=== PATIENT | male | born 1990 | race Caucasian/White ===

== ENCOUNTER 2016-12-15 02:45 | Emergency (ER) | payer OTHER ==
[2016-12-15] MEDS ORDERED: IOPAMIDOL 300 (61%) 100 ML VIAL IV ONE (02:46)
[2016-12-15] MEDS ORDERED: ONDANSETRON 4 MG/2ML 2 ML VIAL ONE (03:09)
[2016-12-15 03:19] LABS: ABSOLUTE NEUTROPHIL COUNT 9.7 K/mm3 (1.8-7.7); BASO % 0.3 % (0.2-1.0); EOS # 0.2 (0.0-0.5); EOS % 1.4 % (0.9-2.9); HEMATOCRIT 45.5 % (32.0-52.0); HEMOGLOBIN 14.4 gm/l (14.0-18.0); IMM NEUT% 0.2 % (0-1); LYMPH # 0.7 (1.0-4.8); LYMPH % 5.8 % (15-45); MEAN CELL VOLUME 85.8 fl (80.0-94.0); MEAN CORPUSCULAR HEMOGLOBIN 27.2 pg (27.0-31.0); MEAN CORPUSCULAR HGB CONC 31.6 g/dl (33.0-37.0); MEAN PLATELET VOLUME 10.6 fl (7.4-10.4); MONO % 8.7 % (4-12); NEUT % 83.6 % (43-75); PLATELET COUNT 202 K/mm3 (130-400); RED CELL DISTRIBUTION WIDTH 12.3 % (11.5-14.5)
[2016-12-15] MEDS ORDERED: ACETAMINOPHEN 500 MG TABLET ONE (03:23)
[2016-12-15 03:35] LABS: SPECIFIC GRAVITY 1.015 (1.001-1.030); URINE BILIRUBIN NEGATIVE (NEGATIVE); URINE BLOOD NEGATIVE (NEGATIVE); URINE GLUCOSE (UA) NEGATIVE (NEGATIVE); URINE LEUKOCYTE ESTERASE NEGATIVE (NEGATIVE); URINE NITRITE NEGATIVE (NEGATIVE); URINE PROTEIN NEGATIVE (NEGATIVE); URINE UROBILINOGEN 1 mg/dL (0-1 mg/dl)
[2016-12-15 03:39] LABS: URINE APPEARANCE CLEAR; URINE COLOR YELLOW
[2016-12-15 03:40] LABS: ALB/GLOB RATIO 1.7 (>1.0); ALBUMIN 4.3 gm/dL (3.5-5.7); CALCIUM 9.4 mg/dL (8.6-10.3)
[2016-12-15] MEDS ORDERED: SODIUM CHLORIDE 0.9% 1,000 ML ONE (04:38)
--- NOTE | 2016-12-15 07:52 | CT ---
NECK SOFT TISSUE W/ CON: 12/15/2016 3:14 AM CLINICAL INDICATION: Cold symptoms without improvement. COMPARISON: None. (MR) Sequences Performed: None (CT) Scan Technique: Contiguous axial 3 mm images from the AP window through the orbital meatal line are obtained after the uneventful IV administration of contrast. Sagittal and coronal reformations were also obtained this time. Contrast: 80 ml of Isovue-300 contrast administered. FINDINGS: Orbits/Paranasal Sinuses/Skull Base: Scattered fluid and mucosal thickening is noted within the ethmoid air cells. Orbits and regional brain are otherwise unremarkable. Nasopharynx: Normal Suprahyoid Neck: Dental amalgam causes streak artifact limiting assessment at the level of the oropharynx. Otherwise normal. Infrahyoid Neck: There is apposition of the vocal cords which may relate to formation or breath-hold during image acquisition. Otherwise normal. Thyroid: Normal Thoracic Inlet: Normal Lymph Nodes: Multiple small nodes are present bilaterally, though none are enlarged by size criteria. Vascular Structures: Normal Other Findings: Osseous structures are otherwise intact. IMPRESSION: Sinus disease without other acute inflammatory process. Close clinical and radiographic follow-up are recommended. Preliminary report was provided by [employer] at approximately 0425 hours on 12/15/2016.
--- NOTE | 2016-12-15 07:52 | RAD ---
12/15/2016 7:48 AM CHEST - 2 VIEWS History: Cough and cold symptoms. Comparison: 11/05/2015 Findings: Two views of the chest are obtained. The lungs are clear with out effusion or pneumothorax. The cardiomediastinal silhouette is unremarkable.. The osseous structures are intact.. IMPRESSION: No acute intrathoracic process.
== END 2016-12-15 06:51 | disposition home or self-care (01) ==
LOC: ED 02:45
DX: B34.9 Viral infection, unspecified (principal); J02.9 Acute pharyngitis, unspecified; R53.83 Other fatigue; R53.81 Other malaise
CPT/HCPCS: 83605; 85025; 80053; 81003; 87880; 71020; 70491; 87804; 99284 ×2; 96374; 96361 ×3; A9270; J2405; J7030; Q9967